=== PATIENT | male | born 1980 | race Caucasian/White ===

== ENCOUNTER 2017-10-23 17:12 | Emergency (ER) | payer SELFPAY ==
[2017-10-23 18:17] LABS: ADD MAN DIFF? NO
[2017-10-23 18:19] LABS: BASO # 0.1 x10^3/uL (0.0-0.2); BASO % 1 % (0-3); EOS # 0.2 x10^3/uL (0.0-0.7); EOS % 3 % (0-3); HEMATOCRIT 43.7 % (39.0-53.0); HEMOGLOBIN 14.8 g/dL (13.0-17.5); LYMPH # 2.2 x10^3/uL (1.0-4.8); LYMPH % 31 % (24-48); MEAN CORPUSCULAR HEMOGLOBIN 29 pg (25-35); MEAN CORPUSCULAR HGB CONC 34 g/dL (31-37); MEAN CORPUSCULAR VOLUME 84 fL (79-100); MONO # 0.6 x10^3/uL (0.0-1.1); MONO % 9 % (0-9); NEUT # 4.1 x10^3uL (1.8-7.7); NEUT % 57 % (31-73); PLATELET COUNT 241 x10^3/uL (140-400); RED BLOOD COUNT 5.18 x10^6/uL (4.30-5.70); RED CELL DISTRIBUTION WIDTH 12.9 % (11.5-14.5); WHITE BLOOD COUNT 7.2 x10^3/uL (4.0-11.0)
[2017-10-23 18:32] LABS: ANION GAP 10 (6-14); BLOOD UREA NITROGEN 20 mg/dL (8-26); BUN/CREATININE RATIO 14 (6-20); CALCIUM 8.8 mg/dL (8.5-10.1); CARBON DIOXIDE 28 mmol/L (21-32); CHLORIDE 103 mmol/L (98-107); CREATININE 1.4 mg/dL (0.7-1.3); GFR 56.4; GLUCOSE 99 mg/dL (70-99); POTASSIUM 3.6 mmol/L (3.5-5.1); SODIUM 141 mmol/L (136-145)
[2017-10-23 18:37] LABS: ALBUMIN 3.6 g/dL (3.4-5.0); ALK PHOS 70 U/L (46-116); ALT (SGPT) 24 U/L (16-63); AST (SGOT) 18 U/L (15-37); LIPASE 146 U/L (73-393); TOTAL BILIRUBIN 0.2 mg/dL (0.2-1.0); TOTAL PROTEIN 7.3 g/dL (6.4-8.2)
[2017-10-23] MEDS: METOCLOPRAMIDE HCL 10 MG/2 ML VIAL. IV (19:20)
[2017-10-23] MEDS: diphenhydrAMINE 50 MG/ML VIAL IVP (19:20)
[2017-10-23] MEDS: MORPHINE SULFATE 4 MG/ML DISP.SYRIN. IV (19:21)
[2017-10-23 19:32] LABS: BILIRUBIN,URINE SMALL (NEG); CLARITY,URINE CLOUDY; COLOR,URINE YELLOW; GLUCOSE,URINE NEGATIVE (NEG); NITRITE,URINE NEGATIVE (NEG); PH,URINE 7.5; PROTEIN,URINE NEGATIVE (NEG-TRACE)
[2017-10-23 19:39] LABS: BACTERIA,URINE 0 /HPF (0-FEW); RBC,URINE OCC /HPF (0-2); SQUAMOUS EPITHELIAL CELL,UR OCC /LPF; WBC,URINE 0 /HPF (0-4)
== END 2017-10-23 20:59 | disposition home or self-care (01) ==
LOC: ER 17:12
DX: R11.2 Nausea with vomiting, unspecified (principal); R19.7 Diarrhea, unspecified; R10.11 Right upper quadrant pain; F41.9 Anxiety disorder, unspecified; F43.10 Post-traumatic stress disorder, unspecified; F32.9 Major depressive disorder, single episode, unspecified; Z90.49 Acquired absence of other specified parts of digestive tract
CPT/HCPCS: 36415; 76705; 80053; 81001; 83690; 85025; 96374; 96375; 99285-25; J1200; J2270; J2765

== ENCOUNTER 2019-01-01 11:27 | Emergency (ER) | payer BC ==
[~2019-01-01] VITALS: Ht 177.8 cm; Wt 79.4 kg
[~2019-01-01 11:27] MED LIST: ONDA4TAB10 SL
[2019-01-01] MEDS ORDERED: ONDANSETRON PF 4 MG/2 ML VIAL. IV ONE (12:15)
[2019-01-01] MEDS ORDERED: MECLIZINE HCL 12.5 MG TABLET. PO ONE (12:15)
[2019-01-01] MEDS ORDERED: IV NORMAL SALINE 1000ML BAG 1,000 ML IV ONE (12:15)
[2019-01-01 12:37] LABS: BASO # 0.1 x10^3/uL (0.0-0.2); BASO % 1 % (0-3); EOS # 0.1 x10^3/uL (0.0-0.7); EOS % 1 % (0-3); HEMOGLOBIN 15.9 g/dL (13.0-17.5); LYMPH # 1.7 x10^3/uL (1.0-4.8); LYMPH % 23 % (24-48); MEAN CORPUSCULAR HEMOGLOBIN 28 pg (25-35); MEAN CORPUSCULAR HGB CONC 34 g/dL (31-37); MEAN CORPUSCULAR VOLUME 84 fL (79-100); MONO # 0.4 x10^3/uL (0.0-1.1); MONO % 6 % (0-9); NEUT # 5.2 x10^3uL (1.8-7.7); NEUT % 70 % (31-73); PLATELET COUNT 283 x10^3/uL (140-400); RED BLOOD COUNT 5.62 x10^6/uL (4.30-5.70); RED CELL DISTRIBUTION WIDTH 12.9 % (11.5-14.5); WHITE BLOOD COUNT 7.5 x10^3/uL (4.0-11.0)
[2019-01-01 12:48] LABS: PROTHROMBIN TIME PATIENT 13.9 SEC (11.7-14.0)
[2019-01-01 12:51] LABS: CALCIUM 9.5 mg/dL (8.5-10.1); CREATININE 1.3 mg/dL (0.7-1.3); GFR 61.1; POTASSIUM 3.9 mmol/L (3.5-5.1)
--- NOTE | 2019-01-01 12:52 | RAD ---
CT HEAD WO CONTRAST History: Dizziness and vomiting for 2 days Comparison: None. Technique: Noncontrast CT imaging was performed of the head. Exposure: One or more of the following individualized dose reduction techniques were utilized for this examination: 1. Automated exposure control 2. Adjustment of the mA and/or kV according to patient size 3. Use of iterative reconstruction technique. Findings: No acute extra-axial or parenchymal hemorrhage is identified. There is no significant intra-axial mass effect, midline shift, or extra-axial fluid collection. The corrales-white differentiation of the major vascular territories is preserved. The ventricles, sulci, and cisterns are within normal limits in size and configuration. Mastoid air cells are aerated. There is minimal patchy ethmoid air cell and sphenoid sinus mucosal thickening. No acute calvarial abnormality is identified. Impression: 1. No acute intracranial abnormality is identified. Electronically signed by: Dano Metcalf MD (01/01/2019 12:50 PM) [id number]
--- NOTE | 2019-01-01 12:53 | RAD ---
PORTABLE CHEST 1V History: Dizziness, nausea and vomiting Comparison: None. Findings: Single view of the chest is submitted. There is no infiltrate, pneumothorax, or effusion. The pericardial cardiac silhouette is within normal limits in size. Impression: 1. There is no radiographic evidence of acute cardiopulmonary disease. Electronically signed by: Dano Metcalf MD (01/01/2019 12:50 PM) [id number]
[2019-01-01 12:56] LABS: ALBUMIN/GLOBULIN RATIO 1.1 (1.0-1.7); TOTAL BILIRUBIN 0.5 mg/dL (0.2-1.0); TOTAL PROTEIN 7.7 g/dL (6.4-8.2)
--- NOTE | 2019-01-01 12:58 | EKG ---
[facility] [address] [place] [address] Test Date: 2019-01-01 Test Time: 12:23:17 Pat Name: MYRIAM SANTOS Department: Room: Gender: M [employer]: : 1980 Requested By: JOSE A MELO Order Number: [id number] Reading MD: Measurements Intervals [place] Rate: 52 P: 48 MT: 148 QRS: 38 QRSD: 66 T: 47 QT: 408 QTc: 381 Interpretive Statements SINUS RHYTHM OTHERWISE NORMAL ECG RI6.01 No previous ECG available for comparison
[2019-01-01 13:47] LABS: BILIRUBIN,URINE NEGATIVE (NEG); CLARITY,URINE CLEAR; COLOR,URINE YELLOW; NITRITE,URINE NEGATIVE (NEG); PH,URINE 7.5; PROTEIN,URINE NEGATIVE (NEG-TRACE)
[2019-01-01 13:59] LABS: BACTERIA,URINE 0 /HPF (0-FEW); RBC,URINE 0 /HPF (0-2); WBC,URINE 0 /HPF (0-4)
[2019-01-01 14:01] LABS: BARBITURATES NEG (NEG); BENZODIAZEPINES NEG (NEG); CANNABINOIDS NEG (NEG); COCAINE NEG (NEG); METHADONE NEG (NEG); OPIATES NEG (NEG); PHENCYCLIDINE NEG (NEG)
[2019-01-01 14:02] LABS: AMPHETAMINE/METHAMPHETAMINE POS (NEG)
[2019-01-01 15:00] VITALS: BP 121/68
[2019-01-01] MEDS ORDERED: ONDA4TAB12 PO (15:05)
--- NOTE | 2019-01-01 15:05 | PHYS DOC ---
Past Medical History Past Medical History: No Pertinent History Past Surgical History: Tonsillectomy, Other Additional Past Surgical Histo: HERNIA REPAIR Alcohol Use: None Drug Use: None Adult General Chief Complaint Chief Complaint: DIZZY/LIGHT HEADED HPI HPI Patient is a 38 year old balloon is in the medical history who presents to the ED today with intermittent episodes of dizziness with lightheadedness, nausea vomiting, symptoms have been going on for 2 days. Patient denies anything speci fically exacerbating or relieving his symptoms. Denies any headache. Denies any chest pain or shortness of breath. Review of Systems Review of Systems Constitutional: Denies fever or chills [] Eyes: Denies change in visual acuity, redness, or eye pain [] HENT: Denies nasal congestion or sore throat [] Respiratory: Denies cough or shortness of breath [] Cardiovascular: No additional information not addressed in HPI [] GI: Reports nausea and vomiting. Denies abdominal pain, bloody stools or diarrhea [] : Denies dysuria or hematuria [] Musculoskeletal: Denies back pain or joint pain [] Integument: Denies rash or skin lesions [] Neurologic: Reports dizziness, lightheadedness. Denies headache, focal weakness or sensory changes [] All other systems were reviewed and found to be within normal limits, except as documented in this note. Current Medications Current Medications Current Medications Medications (Trade) Dose Ordered Sig/Analia Start Time Stop Time Status Last Admin Dose Admin Meclizine HCl (Antivert) 25 mg 1X ONCE 01/01/19 12:15 01/01/19 12:35 DC 01/01/19 12:44 25 MG Ondansetron HCl (Zofran) 4 mg 1X ONCE 01/01/19 12:15 01/01/19 12:35 DC 01/01/19 12:44 4 MG Sodium Chloride 1,000 ml @ 1,000 mls/hr 1X ONCE 01/01/19 12:15 01/01/19 13:14 DC 01/01/19 12:45 1,000 MLS/HR Allergies Allergies Allergies Coded Allergies Type Severity Reaction Last Updated Verified No Known Drug Allergies 01/01/19 No Physical Exam Physical Exam Constitutional: Well developed, well nourished, no acute distress, non-toxic appearance. [] HENT: Normocephalic, atraumatic, bilateral external ears normal, oropharynx moist, no oral exudates, nose normal. [] Eyes: PERRLA, EOMI, conjunctiva normal, no discharge. [] Neck: Normal range of motion, no tenderness, supple, no stridor. [] Cardiovascular:Heart rate regular rhythm, no murmur [] Lungs & Thorax: Bilateral breath sounds clear to auscultation [] Abdomen: Bowel sounds normal, soft, no tenderness, no masses, no pulsatile masses. [] Skin: Warm, dry, no erythema, no rash. [] Back: No tenderness, no CVA tenderness. [] Extremities: No tenderness, no cyanosis, no clubbing, ROM intact, no edema. [] Neurologic: Alert and oriented X 3, normal motor function, normal sensory functi on, no focal deficits noted. Cranial nerves II through XII intact Psychologic: Affect normal, judgement normal, mood normal. [] Current Patient Data Vital Signs Vital Signs Date Time Temp Pulse Resp B/P (MAP) Pulse Ox O2 Delivery O2 Flow Rate FiO2 01/01/19 11:40 96.8 81 20 137/76 (96) 99 Room Air 96.8 Lab Values Laboratory Tests Test 01/01/19 12:27 01/01/19 12:49 White Blood Count 7.5 x10^3/uL (4.0-11.0) Red Blood Count 5.62 x10^6/uL (4.30-5.70) Hemoglobin 15.9 g/dL (13.0-17.5) Hematocrit 47.0 % (39.0-53.0) Mean Corpuscular Volume 84 fL (79-100) Mean Corpuscular Hemoglobin 28 pg (25-35) Mean Corpuscular Hemoglobin Concent 34 g/dL (31-37) Red Cell Distribution Width 12.9 % (11.5-14.5) Platelet Count 283 x10^3/uL (140-400) Neutrophils (%) (Auto) 70 % (31-73) Lymphocytes (%) (Auto) 23 % (24-48) L Monocytes (%) (Auto) 6 % (0-9) Eosinophils (%) (Auto) 1 % (0-3) Basophils (%) (Auto) 1 % (0-3) Neutrophils # (Auto) 5.2 x10^3uL (1.8-7.7) Lymphocytes # (Auto) 1.7 x10^3/uL (1.0-4.8) Monocytes # (Auto) 0.4 x10^3/uL (0.0-1.1) Eosinophils # (Auto) 0.1 x10^3/uL (0.0-0.7) Basophils # (Auto) 0.1 x10^3/uL (0.0-0.2) Prothrombin Time 13.9 SEC (11.7-14.0) Prothrombin Time INR 1.1 (0.8-1.1) Sodium Level 141 mmol/L (136-145) Potassium Level 3.9 mmol/L (3.5-5.1) Chloride Level 104 mmol/L (98-107) Carbon Dioxide Level 27 mmol/L (21-32) Anion Gap 10 (6-14) Blood Urea Nitrogen 26 mg/dL (8-26) Creatinine 1.3 mg/dL (0.7-1.3) Estimated GFR (Cockcroft-Gault) 61.1 BUN/Creatinine Ratio 20 (6-20) Glucose Level 98 mg/dL (70-99) Calcium Level 9.5 mg/dL (8.5-10.1) Magnesium Level 2.0 mg/dL (1.8-2.4) Total Bilirubin 0.5 mg/dL (0.2-1.0) Aspartate Amino Transferase (AST) 17 U/L (15-37) Alanine Aminotransferase (ALT) 22 U/L (16-63) Alkaline Phosphatase 66 U/L (46-116) Creatine Kinase 135 U/L (39-308) Creatine Kinase MB (Mass) 0.6 ng/mL (0.0-3.6) Creatine Kinase MB Relative Index 0.4 % (0-4) Troponin I Quantitative < 0.017 ng/mL (0.000-0.055) KD-Yux-L-Type Natriuretic Peptide 8 pg/mL (0-124) Total Protein 7.7 g/dL (6.4-8.2) Albumin 4.0 g/dL (3.4-5.0) Albumin/Globulin Ratio 1.1 (1.0-1.7) Lipase 106 U/L (73-393) Thyroid Stimulating Hormone (TSH) 0.692 uIU/mL (0.358-3.74) Urine Collection Type Unknown Urine Color Yellow Urine Clarity Clear Urine pH 7.5 Urine Specific [place] >=1.030 Urine Protein Negative mg/dL (NEG-TRACE) Urine Glucose (UA) 250 mg/dL (NEG) Urine Ketones (Stick) 15 mg/dL (NEG) Urine Blood Negative (NEG) Urine Nitrite Negative (NEG) Urine Bilirubin Negative (NEG) Urine Urobilinogen Dipstick 1.0 mg/dL (0.2 mg/dL) Urine Leukocyte Esterase Negative (NEG) Urine RBC 0 /HPF (0-2) Urine WBC 0 /HPF (0-4) Urine Bacteria 0 /HPF (0-FEW) Urine Mucus Mod /LPF Urine Opiates Screen Neg (NEG) Urine Methadone Screen Neg (NEG) Urine Barbiturates Neg (NEG) Urine Phencyclidine Screen Neg (NEG) Urine Amphetamine/Methamphetamine Pos (NEG) Urine Benzodiazepines Screen Neg (NEG) Urine Cocaine Screen Neg (NEG) Urine Cannabinoids Screen Neg (NEG) Urine Ethyl Alcohol Neg (NEG) Laboratory Tests 01/01/19 12:27 Laboratory Tests 01/01/19 12:27 EKG EKG 12:[address] Rand Sinus rhythm heart rate 52 no STEMI Radiology/Procedures Radiology/Procedures []PROCEDURE: PORTABLE CHEST 1V PORTABLE CHEST 1V History: Dizziness, nausea and vomiting Comparison: None. Findings: Single view of the chest is submitted. There is no infiltrate, pneumothorax, or effusion. The pericardial cardiac silhouette is within normal limits in size. Impression: 1. There is no radiographic evidence of acute cardiopulmonary disease. Electronically signed by: Honorio Hatfield MD (01/01/2019 12:50 PM) [id number] DICTATED and SIGNED BY: HONORIO HATFIELD MD DATE: 01/01/19 4409 PROCEDURE: CT HEAD WO CONTRAST CT HEAD WO CONTRAST History: Dizziness and vomiting for 2 days Comparison: None. Technique: Noncontrast CT imaging was performed of the head. Exposure: One or more of the following individualized dose reduction techniques were utilized for this examination: 1. Automated exposure control 2. Adjustment of the mA and/or kV according to patient size 3. Use of iterative reconstruction technique. Findings: No acute extra-axial or parenchymal hemorrhage is identified. There is no significant intra-axial mass effect, midline shift, or extra-axial fluid collection. The corrales-white differentiation of the major vascular territories is preserved. The ventricles, sulci, and cisterns are within normal limits in size and configuration. Mastoid air cells are aerated. There is minimal patchy ethmoid air cell and sphenoid sinus mucosal thickening. No acute calvarial abnormality is identified. Impression: 1. No acute intracranial abnormality is identified. Electronically signed by: Honorio Hatfield MD (01/01/2019 12:50 PM) [email or web address] DICTATED and SIGNED BY: HONORIO HATFIELD MD DATE: 01/01/19 1250 Course & Med Decision Making Course & Med Decision Making Pertinent Labs and Imaging studies reviewed. (See chart for details) This is a 38-year-old male patient presenting to the ED today with complaints of dizziness intermittently for 2 days with nausea and vomiting. Patient denies anything exacerbating or relieving his symptoms. EKG was negative, CT of the head is negative. Chest x-rays negative. Cardiac workup is negative. Patient was given meclizine and a liter of fluid. He states he feels better. He was noted for methamphetamine use which we advised him to stop using. He is up and moving in the ED no distress. He was discharged to home. Provided urologist and instructed to follow-up in the course of this week or next week. Dragon Disclaimer Dragon Disclaimer This electronic medical record was generated, in whole or in part, using a voice recognition dictation system. Departure Departure Impression: Primary Impression: Methamphetamine use Additional Impression: Vertigo Disposition: 01 HOME, SELF-CARE Condition: STABLE Referrals: NO PCP (PCP) IZZY JARRETT MD follow up in 1 week GUCCI ROMO MD follow up in 1 week Patient Instructions: Dizziness, [id number], Nausea and Vomiting, [id number], Vertigo, [id number] Additional Instructions: You were evaluated in the emergency room, your workup was negative, you were noted for methamphetamine use, avoid using this drug, it can cause some of your symptoms. We provided you a couple specialists, follow-up with them as an outpatient. Scripts Meclizine Hcl (MECLIZINE HCL) 25 Mg Tablet 1 TAB PO TID, #20 TAB Prov: MUTUNGA,JOSE A CHEMICAL EDUCATOR 01/01/19 Ondansetron (ONDANSETRON ODT) 4 Mg Tab.rapdis 1 TAB PO PRN Q6-8HRS, #16 TAB Prov: JOSE A MELO APRN 01/01/19 Problem Qualifiers JOSE A MELO APRN January 01, 2019 15:05
[2019-01-01] MEDS ORDERED: MECL25TA3 PO (15:10)
== END 2019-01-01 15:28 | disposition home or self-care (01) ==
LOC: ER 11:27 → MERGE 11:27 → ER 15:28
DX: F15.90 Other stimulant use, unspecified, uncomplicated (principal); R42 Dizziness and giddiness; R11.2 Nausea with vomiting, unspecified; Z90.89 Acquired absence of other organs
CPT/HCPCS: 36415; 70450; 71045; 80053; 80307; 81001; 82553; 83690; 83735; 83880; 84443; 84484; 85025; 85610; 93005; 96361; 96374; 99285; J2405; J7030; J8597